=== PATIENT | male | born 1945 | race Caucasian/White ===

== ENCOUNTER 2017-06-30 11:18 | Inpatient (IN) | payer OTHER ==
[~2017-06-30] VITALS: Ht 177.8 cm; Wt 103.4 kg
[~2017-06-30 11:18] MED LIST: BACITRACIN 50,000 UNIT ONE; BUPIVACAINE/PF 0.5% ONE; EPINEPHRINE 1 MG/ML, 1ML ONE; THROMBIN 5,000 UNIT VIAL TP ONE
[2017-06-30] MEDS ORDERED: LIDOCAINE 1%, 2ML ONE (11:38)
[2017-06-30 11:49] VITALS: BP 194/100
[2017-06-30] MEDS ORDERED: LACTATED RINGERS 1,000 ML IV SCH (11:53)
[2017-06-30] MEDS ORDERED: CHLO25TA PO (12:00)
[2017-06-30] MEDS ORDERED: LIDOCAINE 1%, 2ML SQ PRN (12:00)
[2017-06-30] MEDS ORDERED: ATOR20TA9 PO (12:00)
[2017-06-30] MEDS ORDERED: CHOLECALCIFEROL PO (12:00)
[2017-06-30] MEDS ORDERED: DICLOFENAC (12:00)
[2017-06-30] MEDS ORDERED: ALLO300T PO (12:00)
[2017-06-30] MEDS ORDERED: CALC-60 PO (12:00)
[2017-06-30] MEDS ORDERED: FENTANYL PF 100 MCG/2ML ONE ×4 (12:02→13:54)
[2017-06-30] MEDS ORDERED: PROPOFOL 10 MG/ML, 20ML ONE (12:09)
[2017-06-30] MEDS ORDERED: ONDANSETRON 2MG/ML, 2ML ONE (12:09)
[2017-06-30] MEDS ORDERED: DEXAMETHASONE 4 MG/ML, 1ML ONE (12:09)
[2017-06-30] MEDS ORDERED: SUCCINYLCHOLINE 20 MG/ML, 10ML ONE (12:09)
[2017-06-30] MEDS ORDERED: CEFAZOLIN 1,000 MG ONE (12:09)
[2017-06-30] MEDS ORDERED: PROPOFOL 10 MG/ML, 50ML ONE (12:09)
[2017-06-30] MEDS ORDERED: LATA2.5D3 EACHEYE (12:14)
[2017-06-30] MEDS ORDERED: ASPIRIN PO (12:14)
[2017-06-30] MEDS ORDERED: LOSA100T6 PO (12:14)
[2017-06-30] MEDS ORDERED: OMEP20CA14 PEG (12:14)
[2017-06-30] MEDS ORDERED: EXCEDRIN PO (12:14)
[2017-06-30] MEDS ORDERED: TIMOLOL (12:14)
[2017-06-30] MEDS ORDERED: ACETAMINOPHEN 325 MG TABLET PO PRN (13:30)
[2017-06-30] MEDS ORDERED: ALBUTEROL SULFATE 2.5 MG/3 ML NPPB PRN (13:30)
[2017-06-30] MEDS ORDERED: FENTANYL PF 100 MCG/2ML IV PRN (13:30)
[2017-06-30] MEDS ORDERED: MEPERIDINE/PF 25MG/0.5ML IVPush PRN (13:30)
[2017-06-30] MEDS ORDERED: PROMETHAZINE 25 MG/ML, 1ML IV PRN (13:30)
[2017-06-30] MEDS ORDERED: OXYcodone 5 MG/5 ML ORAL.SOL UDC PO PRN (13:30)
[2017-06-30] MEDS ORDERED: METOPROLOL 1 MG/ML, 5ML IV PRN (13:30)
[2017-06-30] MEDS ORDERED: hydrALAzine 20 MG/ML, 1ML IV PRN (13:30)
[2017-06-30] MEDS ORDERED: ACETAMINOPHEN 650 MG/20.3 ML UDC ONE (13:54)
[2017-06-30] MEDS ORDERED: OXYcodone 5 MG/5 ML ORAL.SOL UDC ONE (13:54)
[2017-06-30] MEDS ORDERED: HYDROmorphone 2 MG/ML, 1ML ONE (13:54)
[2017-06-30] MEDS: HYDROmorphone 1 MG/ML, 1ML IV PRN ×2 (14:08→14:21)
[2017-06-30] MEDS ORDERED: BISACODYL 10 MG SUPP PR PRN (16:00)
[2017-06-30] MEDS ORDERED: OXYcodone/APAP 5/325MG TABLET PO PRN (16:00)
[2017-06-30] MEDS ORDERED: OXYcodone IR 5MG TABLET PO PRN (16:00)
[2017-06-30] MEDS ORDERED: morphine SULFATE 10 MG/ML, 1ML IV PRN (16:00)
[2017-06-30] MEDS ORDERED: PROMETHAZINE 25 MG/ML, 1ML IM PRN (16:00)
[2017-06-30] MEDS ORDERED: ONDANSETRON 2MG/ML, 2ML IV PRN (16:00)
[2017-06-30] MEDS ORDERED: DIAZEPAM 5 MG/ML, 2ML IV PRN (16:00)
[2017-06-30] MEDS ORDERED: MAGNESIUM HYDROXIDE 8%, 30ML UDC PO PRN (16:00)
[2017-06-30] MEDS ORDERED: DIAZEPAM 5 MG TABLET PO PRN (16:00)
[2017-06-30] MEDS ORDERED: CYCLOBENZAPRINE 10 MG TABLET PO PRN (16:00)
[2017-06-30] MEDS ORDERED: METHOCARBAMOL 1,000 MG in DEXTROSE 5% 100 ML IV ONE (16:00)
[2017-06-30 18:04] VITALS: BP 155/87
[2017-06-30] MEDS: NS + 20MEQ KCL 1,000 ML IV SCH (18:44)
[2017-06-30 20:58] VITALS: BP 145/81
[2017-06-30] MEDS ORDERED: ZOLPIDEM 5MG TABLET PO PRN (21:00)
[2017-07-01 00:05] VITALS: BP 123/74
[2017-07-01] MEDS: METHOCARBAMOL 750 MG in DEXTROSE 5% 100 ML IV SCH ×2 (00:18→10:22)
[2017-07-01 03:47] VITALS: BP 125/80
[2017-07-01 05:58] LABS: HEMATOCRIT 41.5 % (39.2-51.8); HEMOGLOBIN 14.2 g/dL (13.7-18.0); WHITE BLOOD COUNT 16.1 x10^3/uL (3.4-10)
[2017-07-01 06:06] LABS: BLOOD UREA NITROGEN 24 mg/dL (7-18)
[2017-07-01] MEDS: NS + 20MEQ KCL 1,000 ML IV SCH (08:00)
[2017-07-01] MEDS ORDERED: SENNA/DOCUSATE TABLET PO SCH (09:00)
[2017-07-01 10:39] VITALS: BP 146/79
[2017-07-01] MEDS ORDERED: HEPARIN 5,000 UNITS/ML, 1ML SQ SCH (14:00)
[2017-07-01] MEDS ORDERED: TRAM50TA2 PO (14:45)
[2017-07-01] MEDS ORDERED: METH500T97 PO (14:48)
[2017-07-01] MEDS ORDERED: DOCU-131 PO (14:49)
[2017-07-03] MEDS ORDERED: METHOCARBAMOL 750 MG TABLET PO SCH
== END 2017-07-01 15:10 | disposition home or self-care (01) | DRG 517 ==
LOC: OUT 11:18 → 4NOR 15:09 → OUT 15:11 → 4NOR 15:12 → DCLOUNGE 07-01 15:10
PROVIDERS: ADMIT Neurological Surgery; ATTEND Neurological Surgery
PROC: 4A11X4G Monitoring of Peripheral Nervous Electrical Activity, Intraoperative, External Approach (ICD-10-PCS; 2017-06-30)
PROC: 01NB0ZZ Release Lumbar Nerve, Open Approach (ICD-10-PCS; principal; 2017-06-30 14:00)
DX: M48.06 Spinal stenosis, lumbar region (principal); G47.30 Sleep apnea, unspecified; M19.90 Unspecified osteoarthritis, unspecified site; M46.96 Unspecified inflammatory spondylopathy, lumbar region; E78.00 Pure hypercholesterolemia, unspecified; R03.0 Elevated blood-pressure reading, without diagnosis of hypertension; Z96.641 Presence of right artificial hip joint; Z82.3 Family history of stroke; Z80.9 Family history of malignant neoplasm, unspecified
CPT/HCPCS: 36415; 72100; 80048; 85025; J0171; J0690; J1100; J1170; J2405; J2704; J3010; J3480; J3490; J0330; J2800; J7120